=== PATIENT | female | born 1990 | race Hispanic/Latino ===

== ENCOUNTER 2023-07-10 10:10 | Emergency (ER) | payer OTHER ==
[~2023-07-10] VITALS: Ht 152.4 cm; Wt 59.0 kg
[2023-07-10 10:51] LABS: BASOPHILS # (AUTO) 0.04 K/uL (0.00-0.20); BASOPHILS % (AUTO) 0.4 % (0.0-5.0); HEMATOCRIT 42.8 % (36-48); IMMATURE GRANULOCYTE ABSOLUTE 0.05 K/uL (0-1); LYMPHOCYTES # (AUTO) 1.2 K/uL (1.0-4.8); MEAN CORPUSCULAR HEMOGLOBIN 28.1 pg (27.0-33.0); MEAN CORPUSCULAR HGB CONC 33.9 g/dL (32.0-36.0); MEAN CORPUSCULAR VOLUME 82.9 fL (79-99); MONOCYTES # (AUTO) 0.7 K/uL (0.1-1.0); MONOCYTES % (AUTO) 6.1 % (3.0-13.0); NEUTROPHILS # (AUTO) 8.8 K/uL (1.8-7.7); PLATELET COUNT (AUTO) 264 K/uL (130-400); RED BLOOD CELL COUNT(AUTO) 5.16 MIL/uL (4.00-5.50); RED CELL DISTRIBUTION WIDTH 14.1 % (11.0-15.5); WHITE BLOOD COUNT (AUTO) 10.7 K/uL (4.8-10.8)
[2023-07-10 11:05] LABS: CREATININE 0.7 mg/dL (0.5-1.0); POTASSIUM 3.6 mmol/L (3.5-5.1)
[2023-07-10 11:07] LABS: BILIRUBIN,TOTAL 1.5 mg/dL (0.2-1.0); TOTAL PROTEIN, SERUM 7.9 g/dL (6.0-8.3)
[2023-07-10] MEDS: LACTATED RINGERS 1000ML 1,000 ML IV ONE (11:13)
[2023-07-10] MEDS: FAMOTIDINE 20MG VIAL IV ONE (11:15)
[2023-07-10] MEDS: METOCLOPRAMIDE 10 MG/2 ML VIAL IVP ONE (11:15)
[2023-07-10 11:29] LABS: APPEARANCE,URINE CLEAR (CLEAR); BILIRUBIN,URINE NEGATIVE (NEGATIVE); COLOR,URINE YELLOW (YELLOW); GLUCOSE, URINE (UA) NEGATIVE (NEGATIVE); KETONES,URINE 40 mg/dL (NEGATIVE); LEUKOCYTE ESTERASE ,URINE NEGATIVE Leu/uL (NEGATIVE); NITRATE,URINE NEGATIVE (NEGATIVE); OCCULT BLOOD,URINE NEGATIVE (NEGATIVE); PROTEIN,URINE 30 mg/dL (NEGATIVE); UROBILINOGEN,URINE 0.2 mg/dL (0.2-1.0)
[2023-07-10 11:38] LABS: ADD UA MICROSCOPIC YES; HCG,QUALITATIVE URINE NEGATIVE (NEGATIVE)
[2023-07-10 11:45] LABS: BACTERIA,URINE FEW /HPF (None Seen); MUCUS,URINE MOD LPF (None Seen); SQUAMOUS EPITHELIAL CELL,UR FEW /HPF (0-2)
[2023-07-10] MEDS: MAG/ALUM/SIMETH 30 ML UDCUP ONE (13:22)
[2023-07-10] MEDS: DICYCLOMINE HCL 10 MG/5 ML ML PO ONE (13:22)
[2023-07-10] MEDS: LIDO 2% VISC 30ML+MAG/AL/SIMETH 30ML+DICYCLOMINE 20MG 10ML PO ONE (13:23)
[2023-07-10] MEDS: LIDOCAINE HCL 2% VISCOUS 15 ML UDCUP ONE (13:23)
[2023-07-10] MEDS ORDERED: COMPOUND PO MISCELLANEOUS 1 EACH MISC MISC PRN (13:30)
[2023-07-10] MEDS ORDERED: PHARMACY COMMUNICATION MISC SCH (13:30)
[2023-07-10] MEDS ORDERED: FAMO-136 PO (14:24)
[2023-07-10] MEDS ORDERED: METO-296 PO (14:24)
[2023-07-10 15:01] VITALS: BP 130/79; PULSE 70; RESP 16; O2SAT 98
[2023-07-10] MEDS: ACETAMINOPHEN 500 MG TABLET PO ONE (15:19)
== END 2023-07-10 15:18 | disposition home or self-care (01) ==
LOC: EDH 10:10
DX: K29.70 Gastritis, unspecified, without bleeding (principal); F11.23 Opioid dependence with withdrawal
CPT/HCPCS: 99284; 96374; 96375; 80053; 83690; 85025; 81001; 81025; 36415; J7120; J3490; J2765